=== PATIENT | male | born 1970 | race Caucasian/White ===

== ENCOUNTER 2018-07-04 21:01 | Emergency (ER) | payer MEDICAID ==
[~2018-07-04] VITALS: Ht 177.8 cm; Wt 104.3 kg
--- NOTE | 2018-07-04 23:45 | NUR ---
BIB 98% FROM HOME AOX4, AMBULATE WITH CRUTCHES VERABLIZING OF RIGHT HEEL PAIN , SWELLLING WITH DRAINANGE. HAD A HISTORY OF FX. TIBIA /FIBULA DUE TO S/P FALL OFF ROOF LAST 9'1118. C/O PAIN AT SCALE OF 8-9/10.AFEBRILE., DENIES ANY ALLERGIES TO MEDICINE. DR. AGUILAR AWARE.
--- NOTE | 2018-07-04 23:51 | NUR ---
SEEN AND EXAMINED BY DR. AGUILAR AT BEDSIDE
[2018-07-05] MEDS ORDERED: VANCOMYCIN 1 GM in IV D5W 250 ML IV ONE ×2
[2018-07-05] MEDS ORDERED: VANCOMYCIN 1 GM VIAL ONE (00:08)
[2018-07-05] MEDS ORDERED: MORPHINE SULFATE INJ 4 MG/ML DISP.SYRIN ONE (00:11)
[2018-07-05 00:42] LABS: BASOPHILS % (AUTO) 0.5 % (0.0-2.0); EOSINOPHILS % (AUTO) 4.1 % (0.0-6.0); HEMATOCRIT 43 % (39-51); HEMOGLOBIN 14.4 g/dL (13.5-17.5); LYMPHOCYTES # (AUTO) 2.4 /CMM (0.8-4.8); LYMPHOCYTES % (AUTO) 25.4 % (20.0-44.0); MEAN CORPUSCULAR HGB CONC 33 g/dl (31.0-36.0); MEAN CORPUSCULAR VOLUME 92 fL (80-96); MONOCYTES # (AUTO) 0.8 /CMM (0.1-1.30); MONOCYTES % (AUTO) 8.1 % (2.0-12.0); NEUTROPHILS # (AUTO) 5.8 /CMM (1.8-8.9); NEUTROPHILS % (AUTO) 61.9 % (43.0-81.0); PLATELET COUNT (AUTO) 294 /CMM (150-450); RDW COEFFICIENT OF VARIATION 12.2 (11.5-15.0); RED BLOOD CELL COUNT(AUTO) 4.71 MIL/uL (4.5-6.0); WHITE BLOOD COUNT (AUTO) 9.4 K/uL (4.3-11.0)
[2018-07-05 00:54] LABS: CALCIUM, SERUM 9.6 mg/dL (8.5-10.1); CREATININE 1.3 mg/dL (0.6-1.3)
[2018-07-05 00:56] LABS: INR 0.95 (0.87-1.13)
[2018-07-05] MEDS ORDERED: MORPHINE SULFATE INJ 2 MG/ML DISP.SYRIN IV ONE (01:00)
[2018-07-05 02:34] VITALS: BP 140/89
--- NOTE | 2018-07-05 02:37 | NUR ---
Patient discharged to home in stable condition. Written and verbal after care instructions given. Patient verbalizes understanding of instruction. IV removed. Catheter intact and site benign. Pressure and 4x4 applied to site. No bleeding noted. VSS.
== END 2018-07-05 02:38 | disposition home or self-care (01) ==
LOC: ER 21:06
DX: L03.115 Cellulitis of right lower limb (principal); I10 Essential (primary) hypertension
CPT/HCPCS: 36415; 73610; 80048; 83605; 85025; 85730; 87040 ×2; 96374; 96375; 99285; A4606; J2270; J3370; Z7610